=== PATIENT | female | born 1985 | race Caucasian/White ===

== ENCOUNTER 2021-05-19 16:42 | Emergency (ER) | payer OTHER | END 2021-05-19 19:02 | disposition home or self-care (01) | LOC: ER1 16:42 | DX: S06.9X9A Unspecified intracranial injury with loss of consciousness of unspecified duration, initial encounter (principal); S16.1XXA Strain of muscle, fascia and tendon at neck level, initial encounter; S70.02XA Contusion of left hip, initial encounter; V49.9XXA Car occupant (driver) (passenger) injured in unspecified traffic accident, initial encounter; Y92.410 Unspecified street and highway as the place of occurrence of the external cause | CPT/HCPCS: 70450; 72125; 73502; 84703; 96374; 99284; J2405 ==